=== PATIENT | female | born 1995 | race Caucasian/White ===

== ENCOUNTER 2019-08-27 08:09 | Emergency (ER) | payer MEDICAID ==
[~2019-08-27] VITALS: Ht 163.8 cm; Wt 57.2 kg
[2019-08-27 08:12] VITALS: BP 110/62
--- NOTE | 2019-08-27 08:21 | NUR ---
AMB TO BED 05, PROVIDED WITH URINE CUP.
[2019-08-27] MEDS ORDERED: metroNIDAZOLE 250 MG TAB PO ONE (08:50)
[2019-08-27] MEDS ORDERED: FLUCONAZOLE 100 MG TAB PO ONE (08:50)
[2019-08-27] MEDS ORDERED: AZITHROMYCIN 250 MG TAB PO ONE (08:50)
[2019-08-27] MEDS ORDERED: cefTRIAXone 1,000 MG in LIDOCAINE MPF 1% 2.1 ML IM ONE (08:50)
[2019-08-27] MEDS ORDERED: LIDOCAINE MPF 1% 5 ML ONE ×2 (09:04→09:10)
[2019-08-27] MEDS ORDERED: cefTRIAXone 1,000 MG VIAL ONE (09:10)
--- NOTE | 2019-08-27 09:46 | NUR ---
Patient discharged with v/s stable. Written and verbal after care instructions given and explained. Patient alert, oriented and verbalized understanding of instructions. Ambulatory with steady gait. All questions addressed prior to discharge. ID band removed. Patient advised to follow up with PMD. Rx of VALTREX,FLAGYL,CIPRO given. Patient educated on indication of medication including possible reaction and side effects. Opportunity to ask questions provided and answered.
[2019-08-27 09:47] VITALS: BP 110/62
[2019-08-27 10:04] LABS: APPEARANCE,URINE CLEAR (CLEAR); BILIRUBIN,URINE NEGATIVE (NEGATIVE); BLOOD, URINE NEGATIVE (NEGATIVE); COLOR,URINE YELLOW (YELLOW); LEUKOCYTE ESTERASE ,URINE NEGATIVE (NEGATIVE); NITRITE, URINE NEGATIVE (NEGATIVE); PH,URINE 6.5 (5.0-9.0); UGLUCOSE NEGATIVE (NEGATIVE)
[2019-08-30 06:11] LABS: CHLAMYDIA TRACHOMATIS AMP DNA Negative (Negative)
== END 2019-08-27 09:46 | disposition home or self-care (01) ==
LOC: MED 08:09
DX: A60.04 Herpesviral vulvovaginitis (principal); N39.0 Urinary tract infection, site not specified
CPT/HCPCS: 36415; 81003; 87210; 87491; 87529; 96372; 99284; J0696; J2001

== ENCOUNTER 2021-11-25 07:26 | Emergency (ER) | payer OTHER ==
[~2021-11-25] VITALS: Ht 160 cm; Wt 54.4 kg
--- NOTE | 2021-11-25 07:26 | NUR ---
Patient BIBA to bed 6, [place] PD at bedside.
--- NOTE | 2021-11-25 07:30 | NUR ---
UNABLE TO OBTAIN EKG AT THIS TIME. PT IS CURRENTLY AGITATED. ERMD MADE AWARE.
[2021-11-25 07:32] VITALS: BP 145/89
[2021-11-25] MEDS ORDERED: MIDAZOLAM 2 MG/2 ML VIAL IM ONE (07:35)
[2021-11-25] MEDS ORDERED: NACL 0.9% 2,000 ML IV ONE (07:35)
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
--- NOTE | 2021-11-25 07:45 | NUR ---
Patient ambulated to the restroom with 5150 hold precautions, to provide urine sample.
[2021-11-25 09:03] LABS: BASOPHILS % (AUTO) 0.4 % (0.0-2.0); EOSINOPHILS # (AUTO) 0.2 K/uL (0-0.4); EOSINOPHILS % (AUTO) 2.6 % (0.0-4.0); HEMATOCRIT 38.3 % (36-48); HEMOGLOBIN 12.8 g/dL (12.0-16.0); LYMPHOCYTES # (AUTO) 1.2 K/uL (2.5-16.5); LYMPHOCYTES % (AUTO) 13.2 % (20.5-51.1); MEAN CORPUSCULAR HEMOGLOBIN 29 pg (27-31); MEAN CORPUSCULAR HGB CONC 34 g/dL (33-37); MEAN CORPUSCULAR VOLUME 86.2 fL (80-94); MONOCYTES # (AUTO) 0.5 K/uL (0.8-1.0); MONOCYTES % (AUTO) 5.6 % (1.7-9.3); NEUTROPHILS % (AUTO) 78.2 % (42.2-75.2); PLATELET COUNT (AUTO) 262 K/uL (140-450); RED BLOOD CELL COUNT(AUTO) 4.44 MIL/uL (4.20-5.40); RED CELL DISTRIBUTION WIDTH 15.2 % (11.6-13.7)
[2021-11-25] MEDS ORDERED: OLANZapine 10 MG VIAL IM ONE (09:25)
[2021-11-25] MEDS ORDERED: NICOTINE TRANSD SYS 14 MG/24 HR PATCH TD SCH (09:25)
[2021-11-25 09:31] LABS: ALBUMIN 3.6 g/dL (3.4-5.0); ANION GAP 16.3 (8-16); ASPARTATE AMINOTRANSFERASE 46 U/L (15-37); CHLORIDE 105 mmol/L (98-107); CREATININE 0.7 mg/dL (0.6-1.3); GFR ARICAN-AMERICAN 131 mL/min (>90); GLUCOSE 96 mg/dL (74-106); POTASSIUM 3.3 mmol/L (3.5-5.1); SODIUM SERUM 141 mmol/L (136-145); TOTAL BILIRUBIN 0.3 mg/dL (0.0-1.0); UREA NITROGEN, BLOOD 9 mg/dL (7-18)
[2021-11-25 09:33] LABS: SALICYLATE < 2.8 mg/dL (2.8-20.0)
[2021-11-25 09:34] LABS: ACETAMINOPHEN < 0.5 ug/ml (10-30)
[2021-11-25] MEDS ORDERED: WATER STERILE 10 ML MC ONE (09:36)
[2021-11-25 09:38] LABS: APPEARANCE,URINE CLEAR (CLEAR); BILIRUBIN,URINE NEGATIVE (NEGATIVE); BLOOD, URINE NEGATIVE (NEGATIVE); COLOR,URINE YELLOW (YELLOW); LEUKOCYTE ESTERASE ,URINE NEGATIVE (NEGATIVE); NITRITE, URINE NEGATIVE (NEGATIVE); UGLUCOSE NEGATIVE (NEGATIVE)
--- NOTE | 2021-11-25 09:52 | NUR ---
LEI COLLECTED AND WALKED TO LAB
[2021-11-25 09:57] LABS: BARBITURATE, URINE NEGATIVE ng/ml (NEG <=200); BENZODIAZEPINE, URINE NEGATIVE ng/mL (NEG <=200); CANNABINOID, URINE NEGATIVE ng/mL (NEG <=50); COCAINE, URINE POSITIVE ng/mL (NEG <=300)
[2021-11-25 09:58] LABS: OPIATE, URINE NEGATIVE ng/mL (NEG <=2000); PHENCYCLIDINE SCREEN,URINE NEGATIVE ng/mL (NEG <=25)
--- NOTE | 2021-11-25 11:45 | NUR ---
PT SLEEPING. RESPIRATIONS EVEN AND UNLABORED. WILL CONTINUE TO CLOSELY MONITOR.
--- NOTE | 2021-11-25 14:00 | NUR ---
PT SLEEPING . NO ACUTE DISTRESS AT THIS TIME.
--- NOTE | 2021-11-25 16:00 | NUR ---
RESPIRATIONS EVEN AND UNLABORED. PT CALM, LYING IN THE BED.
[2021-11-25] MEDS ORDERED: POTASSIUM CHLORIDE 10 MEQ TABER PO ONE (17:35)
--- NOTE | 2021-11-25 18:00 | NUR ---
PT CALM IN THE BED, EYES CLSOED. PERRLA. AROUSABLE TO NAME. WILL CONTINUE TO MONITOR.
--- NOTE | 2021-11-25 19:24 | NUR ---
ENDORSED BEDSIDE REPORT TO NANDO CORREA EXECUTIVE DIRECTOR OFR CONTINUITY OF CARE. PT SLEEPING. NO ACUTE DISTRESS.
--- NOTE | 2021-11-25 19:43 | NUR ---
SPOKE WITH SAMMY TO GIVE GENERAL BACKGROUND FOR PATIENT
--- NOTE | 2021-11-25 21:50 | NUR ---
PT WITH TELEPSYCH
--- NOTE | 2021-11-25 22:20 | NUR ---
CHASITY ADVISED TO KEEP THE HOLD. PT UNABLE TO ANSWER QUESTIONS. PT DISORIENTED
--- NOTE | 2021-11-26 00:30 | NUR ---
Patient appears to be resting comfortably in bed. Vital Signs within normal limits. Respirations even and unlabored.
--- NOTE | 2021-11-26 01:04 | NUR ---
[facility] TRANSPORT AT BEDSIDE
[2021-11-26 01:08] VITALS: BP 103/59
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
--- NOTE | 2021-11-26 01:18 | NUR ---
The patient's care was reviewed and supervised by Nuris Coello RN.
--- NOTE | 2021-11-26 01:18 | NUR ---
PT TAKEN BY [facility] UNIT 1 ROOM 103A
== END 2021-11-26 01:18 | disposition short-term general hospital (02) ==
LOC: MED 07:26
DX: F23 Brief psychotic disorder (principal); Z20.822 Contact with and (suspected) exposure to COVID-19; F31.9 Bipolar disorder, unspecified
CPT/HCPCS: 36415; 80053; 80305; 81003; 81025; 82550; 82553; 85025; 87426; 87635; 93005; 96360; 96372; 99285; C9803; G0480; G0482; J2250; J3490; J7030

== ENCOUNTER 2022-07-13 02:36 | Emergency (ER) | payer OTHER, MEDICAID ==
[~2022-07-13] VITALS: Ht 175.3 cm; Wt 68.0 kg
--- NOTE | 2022-07-13 02:43 | NUR ---
PT BIB [place] [employer], TAKEN TO BED 4
[2022-07-13] MEDS ORDERED: LORazepam 2 MG/ML VIAL IM STA (02:46)
[2022-07-13 02:48] VITALS: BP 127/67
[2022-07-13] MEDS ORDERED: HALOPERIDOL IM 5 MG/ML VIAL IM ONE (02:50)
[2022-07-13] MEDS ORDERED: diphenhydrAMINE 50 MG/ML VIAL IM ONE (02:50)
[2022-07-13] MEDS ORDERED: HALOPERIDOL IM 5 MG/ML VIAL ONE (02:53)
[2022-07-13] MEDS ORDERED: diphenhydrAMINE 50 MG/ML VIAL ONE (02:53)
[2022-07-13] MEDS ORDERED: LORazepam 2 MG/ML VIAL ONE (02:53)
--- NOTE | 2022-07-13 03:02 | NUR ---
LAB AT BEDSIDE
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
[2022-07-13 03:08] LABS: BASOPHILS # (AUTO) 0.1 K/uL (0.00-0.22); BASOPHILS % (AUTO) 1.2 % (0.0-2.0); EOSINOPHILS # (AUTO) 0.2 K/uL (0-0.4); EOSINOPHILS % (AUTO) 2.8 % (0.0-4.0); HEMATOCRIT 38.5 % (36-48); HEMOGLOBIN 12.7 g/dL (12.0-16.0); LYMPHOCYTES # (AUTO) 1.7 K/uL (2.5-16.5); LYMPHOCYTES % (AUTO) 20.7 % (20.5-51.1); MEAN CORPUSCULAR HEMOGLOBIN 28 pg (27-31); MEAN CORPUSCULAR HGB CONC 33 g/dL (33-37); MEAN CORPUSCULAR VOLUME 83.4 fL (80-94); MONOCYTES # (AUTO) 0.9 K/uL (0.8-1.0); MONOCYTES % (AUTO) 10.9 % (1.7-9.3); NEUTROPHILS # (AUTO) 5.2 K/uL (1.8-7.7); NEUTROPHILS % (AUTO) 64.4 % (42.2-75.2); PLATELET COUNT (AUTO) 262 K/uL (140-450); RED BLOOD CELL COUNT(AUTO) 4.62 MIL/uL (4.20-5.40); RED CELL DISTRIBUTION WIDTH 14.9 % (11.6-13.7); WHITE BLOOD COUNT (AUTO) 8.1 K/uL (4.8-10.8)
--- NOTE | 2022-07-13 03:15 | NUR ---
PATIENT AMBULATED TO RESTROOM WITH STEADY GAIT
--- NOTE | 2022-07-13 03:26 | NUR ---
Dr. Sanders examining patient.
[2022-07-13 03:31] LABS: APPEARANCE,URINE CLEAR (CLEAR); BILIRUBIN,URINE NEGATIVE (NEGATIVE); BLOOD, URINE 1+ (NEGATIVE); COLOR,URINE YELLOW (YELLOW); LEUKOCYTE ESTERASE ,URINE NEGATIVE (NEGATIVE); NITRITE, URINE NEGATIVE (NEGATIVE); PH,URINE 5.5 (5.0-9.0); UGLUCOSE NEGATIVE (NEGATIVE)
--- NOTE | 2022-07-13 03:37 | NUR ---
SPOKE TO DR. TELLO. AND GAVE UPDATE ON PATIENTS STATUS. STATED THAT CURRENTLY HAS NO ACCESS TO [employer]. WILL CALL BACK WHEN RESOURCE IS AVAILABLE.
[2022-07-13 03:40] LABS: ALBUMIN 4.4 g/dL (3.4-5.0); ANION GAP 16.9 (8-16); ASPARTATE AMINOTRANSFERASE 40 U/L (15-37); CARBON DIOXIDE 22.9 mmol/L (21-32); CHLORIDE 104 mmol/L (98-107); GFR ARICAN-AMERICAN 86 mL/min (>90); GLUCOSE 110 mg/dL (74-106); POTASSIUM 3.8 mmol/L (3.5-5.1); SODIUM SERUM 140 mmol/L (136-145); TOTAL BILIRUBIN 0.3 mg/dL (0.0-1.0); UREA NITROGEN, BLOOD 9 mg/dL (7-18)
[2022-07-13 03:47] LABS: BARBITURATE, URINE NEGATIVE ng/ml (NEG <=200); BENZODIAZEPINE, URINE NEGATIVE ng/mL (NEG <=200); CANNABINOID, URINE NEGATIVE ng/mL (NEG <=50); COCAINE, URINE POSITIVE ng/mL (NEG <=300); OPIATE, URINE NEGATIVE ng/mL (NEG <=2000); PHENCYCLIDINE SCREEN,URINE NEGATIVE ng/mL (NEG <=25)
--- NOTE | 2022-07-13 03:47 | NUR ---
SWABS COLLECTED AND HANDED TO LAB
[2022-07-13 03:50] LABS: HYALINE CASTS, URINE 0-10 /LPF (None Seen); RBC,URINE 0-5 /HPF (0-5); WBC,URINE 0-5 /HPF (0-5)
--- NOTE | 2022-07-13 03:51 | NUR ---
BELONGINGS HANDED TO [facility] FOR STORAGE
[2022-07-13 03:52] LABS: ACETAMINOPHEN < 0.5 ug/ml (10-30); SALICYLATE < 2.8 mg/dL (2.8-20.0)
--- NOTE | 2022-07-13 04:00 | NUR ---
PATIETN RESTING WITH EYES CLOSED. DOESNT APPEAR TO BE IN DISTRESS. PATIENT CONTINUES TO BE ON BEDSIDE MONITOR. BED LOW AND LOCKED. IRWIN SIDE RAILS FOR SAFETY.
--- NOTE | 2022-07-13 06:40 | NUR ---
ERMD ASSESSING PATIENT.
--- NOTE | 2022-07-13 07:19 | NUR ---
Received report from ECTOR Gold. Assumed care at this time.
--- NOTE | 2022-07-13 07:19 | NUR ---
REPORT GIVEN TO ECTOR CUELLO. TRANSFER OF CARE.
--- NOTE | 2022-07-13 08:00 | NUR ---
Pt on telepsych call with Dr. Cartagena.
--- NOTE | 2022-07-13 08:12 | NUR ---
Per Dr. Cartagena, pt does not need to be placed on a hold, Rx med order placed and to be given first dose before discharge.
[2022-07-13] MEDS ORDERED: CRUSHER, PILL MC ONE (08:29)
[2022-07-13] MEDS ORDERED: risperiDONE 1 MG TAB PO SCH (09:00)
[2022-07-13 10:32] LABS: ANION GAP 14.4 (8-16); CARBON DIOXIDE 26.8 mmol/L (21-32); CREATININE 0.8 mg/dL (0.6-1.3); POTASSIUM 3.2 mmol/L (3.5-5.1)
[2022-07-13] MEDS ORDERED: POTASSIUM CHLORIDE 10 MEQ TABER PO ONE (11:00)
--- NOTE | 2022-07-13 12:07 | NUR ---
CALLED MOTHER, PETRONA JUÁREZ, NO ANSWER AT THIS TIME.
--- NOTE | 2022-07-13 12:13 | NUR ---
"WILLOW", CALLED, NO ANSWER. PT STATES UBER TO MOTHER'S HOUSE IS OKAY
--- NOTE | 2022-07-13 12:29 | NUR ---
PETRONA JUÁREZ contacted back, states she will be here to grain picker pt at [phone]
[2022-07-13 12:30] VITALS: BP 95/60
--- NOTE | 2022-07-13 12:30 | NUR ---
Patient discharged with v/s stable. Written and verbal after care instructions given and explained. Patient verbalized understanding. Ambulatory with steady gait. All questions addressed prior to discharge. Advised to follow up with PMD.
== END 2022-07-13 12:30 | disposition home or self-care (01) ==
LOC: MED 02:36
DX: R41.82 Altered mental status, unspecified (principal); Z20.822 Contact with and (suspected) exposure to COVID-19; R45.1 Restlessness and agitation; F14.10 Cocaine abuse, uncomplicated; F10.129 Alcohol abuse with intoxication, unspecified; Y90.9 Presence of alcohol in blood, level not specified
CPT/HCPCS: 36415; 80048; 80053; 80305; 81001; 81025; 84484; 85025; 87086; 87426; 87635; 93005; 96372; 99291; C9803; G0480; G0482; J1200; J1630; J2060

== ENCOUNTER 2022-11-15 08:21 | Emergency (ER) | payer BC, MEDICAID, OTHER ==
[~2022-11-15] VITALS: Ht 170.2 cm; Wt 59.0 kg
[2022-11-15 08:22] VITALS: BP 122/90
[2022-11-15] MEDS ORDERED: HALOPERIDOL IM 5 MG/ML VIAL IM ONE (08:50)
[2022-11-15] MEDS ORDERED: MIDAZOLAM 2 MG/2 ML VIAL IM ONE (08:50)
[2022-11-15] MEDS ORDERED: MIDAZOLAM 5 MG/1 ML VIAL ONE (09:04)
--- NOTE | 2022-11-15 09:22 | NUR ---
LEFT MESSAGE FOR PETRONA (MOTHER) [phone]
--- NOTE | 2022-11-15 09:25 | NUR ---
27 years old female biba for abnormal behavior denies HI/SI safety maintained bed in low position.
--- NOTE | 2022-11-15 09:54 | NUR ---
PER OFFICER BLAS MIM[employer], CALL BACK WHEN PT IS MORE ALERT
--- NOTE | 2022-11-15 13:19 | NUR ---
patient reassess quiet denies pain vss sleeping no sob.
--- NOTE | 2022-11-15 13:56 | NUR ---
Patient appears to be resting comfortably in bed. Vital Signs within normal limits. Respirations even and unlabored.
[2022-11-15 15:48] VITALS: BP 110/60
--- NOTE | 2022-11-15 15:50 | NUR ---
patient condition stable d/c home with instructions after care reviewed understood left er ambulatory with steady gait.
== END 2022-11-15 15:48 | disposition home or self-care (01) ==
LOC: MED 08:21
DX: S01.01XA Laceration without foreign body of scalp, initial encounter (principal); F10.129 Alcohol abuse with intoxication, unspecified; F15.90 Other stimulant use, unspecified, uncomplicated; Y90.9 Presence of alcohol in blood, level not specified; X58.XXXA Exposure to other specified factors, initial encounter; Y93.89 Activity, other specified; Y92.89 Other specified places as the place of occurrence of the external cause; Y99.8 Other external cause status
CPT/HCPCS: 90471; 90715; 96372; 99285; J1630; J2250